=== PATIENT | female | born 2000 | race Two or more races ===

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

== ENCOUNTER 2022-11-21 05:13 | Emergency (ER) | payer MEDICAID, OTHER ==
[~2022-11-21] VITALS: Ht 170.2 cm; Wt 100.0 kg
[~2022-11-21 05:13] MED LIST: PREN-96 OR
[2022-11-21 08:12] VITALS: PULSE 7; RESP 18
[2022-11-21 10:26] VITALS: BP 97/55; PULSE 62; RESP 18; TEMP 98.2; O2SAT 95
== END 2022-11-21 10:25 | disposition home or self-care (01) ==
LOC: EDBD 05:13 → ER 05:13
DX: S09.8XXA Other specified injuries of head, initial encounter (principal); V43.62XA Car passenger injured in collision with other type car in traffic accident, initial encounter; Y93.89 Activity, other specified; Y92.89 Other specified places as the place of occurrence of the external cause; Y99.8 Other external cause status
CPT/HCPCS: 70450; 71046; 72125